=== PATIENT | female | born 1955 | race American Indian/Alaskan Native ===

== ENCOUNTER 2018-10-05 20:52 | Emergency (ER) | payer MEDICARE ==
[~2018-10-05] VITALS: Ht 170.2 cm; Wt 98.0 kg
[2018-10-05] MEDS ORDERED: rabies immune globulin/PF 150 unit/ml inj IMVAC STA (21:52)
[2018-10-05] MEDS ORDERED: rabies vaccine (PCEC)/PF 2.5 unit kit IMVAC ONE (21:55)
[2018-10-05] MEDS ORDERED: TETanus/Pertussis (Acell)/Diphther VAC/PF (Tdap-Adult) 0.5ml syringe IM ONE (21:55)
[2018-10-05] MEDS ORDERED: amox tr/potassium clavulanate 875/125mg TAB PO ONE (21:55)
[2018-10-05] MEDS ORDERED: AMOX-580 PO (22:07)
[2018-10-05 23:27] VITALS: BP 164/98
== END 2018-10-05 23:28 | disposition home or self-care (01) ==
LOC: ER 20:53
DX: S61.451A Open bite of right hand, initial encounter (principal); W55.01XA Bitten by cat, initial encounter; Y93.89 Activity, other specified; Y92.89 Other specified places as the place of occurrence of the external cause; Y99.8 Other external cause status
CPT/HCPCS: 90375; 90471; 90472; 90675; 90715; 96372; 99283

== ENCOUNTER 2018-10-08 06:46 | Emergency (ER) | payer MEDICARE ==
[~2018-10-08 06:46] MED LIST: AMOX-580 PO
[2018-10-08 06:54] VITALS: BP 136/66
[2018-10-08] MEDS ORDERED: rabies vaccine (PCEC)/PF 2.5 unit kit IMVAC ONE (07:05)
== END 2018-10-08 07:46 | disposition home or self-care (01) ==
LOC: ER 06:46
DX: Z23 Encounter for immunization (principal); Z79.2 Long term (current) use of antibiotics
CPT/HCPCS: 90471; 90675; 99283

== ENCOUNTER 2018-10-12 07:10 | Emergency (ER) | payer MEDICARE ==
[~2018-10-12] VITALS: Ht 170.2 cm; Wt 109.1 kg
[2018-10-12 07:16] VITALS: BP 136/66
[2018-10-12] MEDS ORDERED: rabies vaccine (PCEC)/PF 2.5 unit kit IM ONE (07:30)
== END 2018-10-12 07:44 | disposition home or self-care (01) ==
LOC: ER 07:11
DX: Z23 Encounter for immunization (principal); S61.451D Open bite of right hand, subsequent encounter; Z88.1 Allergy status to other antibiotic agents; W55.01XD Bitten by cat, subsequent encounter
CPT/HCPCS: 90471; 90675; 99283

== ENCOUNTER 2018-10-19 07:23 | Emergency (ER) | payer MEDICARE ==
[~2018-10-19] VITALS: Ht 167.6 cm; Wt 102.5 kg
[2018-10-19] MEDS ORDERED: rabies vaccine (PCEC)/PF 2.5 unit kit IMVAC ONE (07:25)
[2018-10-19 07:27] VITALS: BP 164/80
== END 2018-10-19 08:06 | disposition home or self-care (01) ==
LOC: ER 07:23
DX: Z23 Encounter for immunization (principal); Z88.2 Allergy status to sulfonamides; Z79.2 Long term (current) use of antibiotics
CPT/HCPCS: 90471; 90675; 99283

== ENCOUNTER 2021-12-10 13:23 | Emergency (ER) | payer MEDICARE ==
[~2021-12-10] VITALS: Ht 170.2 cm; Wt 75.0 kg
[2021-12-10 17:11] VITALS: BP 134/86
== END 2021-12-10 17:19 | disposition home or self-care (01) ==
LOC: ER 13:24
DX: R25.1 Tremor, unspecified (principal); G30.9 Alzheimer's disease, unspecified; F02.80 Dementia in other diseases classified elsewhere, unspecified severity, without behavioral disturbance, psychotic disturbance, mood disturbance, and anxiety; Z88.2 Allergy status to sulfonamides
CPT/HCPCS: 99283

== ENCOUNTER 2024-01-27 14:33 | Emergency (ER) | payer MEDICARE ==
[~2024-01-27] VITALS: Ht 172.7 cm; Wt 65.9 kg
[2024-01-27 19:38] LABS: APTT 28 SECONDS (22-32); INR 1.1 INR; PROTHROMBIN TIME 11.3 SECONDS (9.0-12.0)
[2024-01-27 19:45] LABS: BASOPHILS % (AUTO) 0.5 % (0-1); EOSINOPHILS % (AUTO) 0.9 % (0-6); HEMATOCRIT 38.2 % (35.0-45.0); HEMOGLOBIN 12.8 g/dl (12.0-16.0); LYMPHOCYTES # (AUTO) 1.4 X10'3 (1.1-4.8); LYMPHOCYTES % (AUTO) 28.9 % (21-51); MEAN CORPUSCULAR HEMOGLOBIN 31.4 PG (27.0-31.0); MEAN CORPUSCULAR HGB CONC 33.7 g/dL (33.0-36.5); MEAN CORPUSCULAR VOLUME 93.4 FL (78-98); MEAN PLATELET VOLUME 7.5 FL (7.4-10.4); MONOCYTES # (AUTO) 0.4 X10'3 (0-0.9); MONOCYTES % (AUTO) 7.3 % (2-12); NEUTROPHILS # (AUTO) 3.1 X10'3 (1.8-7.7); NEUTROPHILS % (AUTO) 62.4 % (42-75); PLATELET COUNT 234 X10'3 (140-440); RED BLOOD COUNT 4.09 X10'6 (4.20-5.60); RED CELL DISTRIBUTION WIDTH 13.3 % (11.5-14.5)
[2024-01-27 19:49] LABS: ANION GAP 10 (8-16); BLOOD UREA NITROGEN 24 MG/DL (7-18); BUN/CREATININE RATIO 33.3 (10.0-20.0); CALCIUM 9.3 MG/DL (8.5-10.1); CHLORIDE 107 MMOL/L (99-107); CREATININE 0.72 MG/DL (0.40-0.90); GLUCOSE 95 MG/DL (70-104); POTASSIUM 3.7 MMOL/L (3.5-5.1); SODIUM 146 MMOL/L (135-145); TOTAL CARBON DIOXIDE 28.8 MMOL/L (24-32); eCRCL 76 ML/MIN; eGFR 81 ML/MIN
[2024-01-27 19:50] VITALS: TEMP 97.9
[2024-01-27] MEDS: acetaminophen 325mg tablet PO ONE (21:02)
[2024-01-27 22:01] LABS: BILIRUBIN,URINE NEGATIVE (Neg); CLARITY,URINE CLEAR (Clear); COLOR,URINE YELLOW (Yellow); GLUCOSE, URINE NEGATIVE (Neg); KETONES,URINE TRACE mg/dl (Neg); LEUKOCYTE ESTERASE ,URINE NEGATIVE (Neg); NITRITES, URINE NEGATIVE (Neg); OCCULT BLOOD,URINE NEGATIVE (Neg); PROTEIN,URINE NEGATIVE (Neg); UROBILINOGEN,URINE 0.2 E.U/dL (0.2-1.0)
[2024-01-27 22:06] LABS: UA COLLECTION TYPE CLN CATCH MIDSTREAM
[2024-01-28] MEDS: LORazepam 2 mg/ml vial IV ONE (01:19)
[2024-01-28] MEDS: chlordiazePOXIDE 25mg capsule PO ONE (01:27)
[2024-01-28] MEDS: LORazepam 2 mg/ml vial ONE (01:56)
[2024-01-28 18:00] VITALS: BP 156/75; PULSE 63; RESP 16; O2SAT 100
== END 2024-01-28 18:30 | disposition home or self-care (01) ==
LOC: ER 14:33
DX: G44.209 Tension-type headache, unspecified, not intractable (principal); G30.9 Alzheimer's disease, unspecified; F02.80 Dementia in other diseases classified elsewhere, unspecified severity, without behavioral disturbance, psychotic disturbance, mood disturbance, and anxiety; Z88.2 Allergy status to sulfonamides
CPT/HCPCS: 36415; 70450; 71046; 72125; 80048; 81003; 82948; 84484; 85025; 85610; 85730; 93005; 96374; 99285; J2060; A6449

== ENCOUNTER 2024-05-18 22:23 | Emergency (ER) | payer MEDICARE ==
[~2024-05-18] VITALS: Ht 172.7 cm; Wt 69.4 kg
[2024-05-19 00:01] VITALS: BP 145/94; PULSE 55; RESP 18; TEMP 97.9; O2SAT 99
== END 2024-05-19 00:01 | disposition home or self-care (01) ==
LOC: ER 22:23
DX: S93.691A Other sprain of right foot, initial encounter (principal); F03.90 Unspecified dementia, unspecified severity, without behavioral disturbance, psychotic disturbance, mood disturbance, and anxiety; Z88.2 Allergy status to sulfonamides; X58.XXXA Exposure to other specified factors, initial encounter; Y93.89 Activity, other specified; Y92.89 Other specified places as the place of occurrence of the external cause; Y99.8 Other external cause status
CPT/HCPCS: 99281